=== PATIENT | female | born 1955 | race Caucasian/White ===

== ENCOUNTER → 2016-07-09 | Outpatient (CLI) | payer BC, OTHER ==
[~2016-07-09] MED LIST: AMB10 PO; BND25 PO; CYM/30 PO; DULO60CA44 PO; LINA1CAP2 PO; MORP15TA PO; PREG100C PO; estrogen patch
[2016-07-09 11:09] LABS: BASO % 0.4 %; BASO ABS # 0.02 K/uL (0-0.2); COMPLETE YES; EOS % 2.8 %; HEMATOCRIT 37.3 % (37-47); LYMPH % 21.5 %; LYMPH ABS # 1.07 K/uL (1.2-3.4); MEAN CELL VOLUME 104.8 fL (80-100); MEAN CORPUSCULAR HEMOGLOBIN 34.8 pg (25-34); MEAN CORPUSCULAR HGB CONC 33.2 g/dl (32-36); MEAN PLATELET VOLUME 10.9 fL (7.4-10.4); MONO % 9.4 %; NEUT % 65.9 %; PLATELET COUNT 232 K/uL (130-400); RED BLOOD COUNT 3.56 M/uL (4.2-5.4); WHITE BLOOD COUNT 4.98 K/uL (4.8-10.8)
[2016-07-09 12:10] LABS: ALT/SGPT 32 U/L (12-78); AST/SGOT 32 U/L (15-37); BLOOD UREA NITROGEN 15 mg/dl (7-18); BUN/CREATININE RATIO 22.2 (10-20); CALCIUM 9.1 mg/dl (8.5-10.1); CARBON DIOXIDE 26 mmol/L (21-32); CHLORIDE 106 mmol/L (98-107); CREATININE 0.68 mg/dl (0.60-1.20); GLUCOSE 76 mg/dl (70-99); POTASSIUM 4.5 mmol/L (3.5-5.1); SODIUM 140 mmol/L (136-145)
== END | disposition home or self-care (01) ==
LOC: C.LAB 10:21
DX: M19.90 Unspecified osteoarthritis, unspecified site (principal)

== ENCOUNTER → 2016-09-24 | Outpatient (CLI) | payer BC, OTHER ==
[~2016-09-24] MED LIST changes: -BND25 PO; +DIPH25CA5 PO
== END | disposition home or self-care (01) ==
LOC: C.MAMM 13:28
DX: M81.0 Age-related osteoporosis without current pathological fracture (principal); M85.89 Other specified disorders of bone density and structure, multiple sites

== ENCOUNTER → 2016-10-31 | Outpatient (CLI) | payer BC, OTHER ==
--- NOTE | 2016-10-31 14:49 | MAMMOGRAPHY REPORT ---
ULTRASOUND OF RIGHT BREAST: 10/31/2016 CLINICAL HISTORY: 6 Month Follow-up Right. COMPARISON: Comparison is made to exams dated: 05/02/2016 ultrasound, 05/02/2016 mammogram, 04/24/20 16 mammogram, 04/15/2015 mammogram, 04/14/2014 mammogram, and 04/13/2013 mammogram - [facility]. TECHNIQUE: Real-time targeted ultrasound of the right breast was performed. FINDINGS: Real-time, high resolution targeted ultrasound was performed of the region of the previous ly seen mammographic mass. In the right breast at 6:00 periareolar region, again noted is an isoecho ic oval parallel circumscribed mass which measures 2.2 x 1.0 x 2.0 cm. This previously measured 2.2 x 1.0 x 1.9 cm on the April 2016 exam and is unchanged in size and appearance. Some moderately di lated ducts are seen within the adjacent tissues, some of which do contain internal echogenic debris. Given the benign morphology and stability of the mass, the mass is probably benign, and could poten tially represent debris within a dilated duct, a complicated cyst, or a benign solid mass such as a f ibroadenoma. Recommend another short-term interval follow-up ultrasound in 6 months. IMPRESSION: ACR-BI-RADS CATEGORY 3: PROBABLY BENIGN - FOLLOW-UP RECOMMENDED Isoechoic circumscribed benign-appearing 2.2 cm mass in the right 6:00 breast is stable on ultrasound dating back to April 2016 and is probably benign. Recommend follow-up ultrasound in 6 months to confirm one-year stability; routine bilateral tomosynthesis mammograms will be due at that time. The patient was verbally notified of the results. Rylie Mena M.D. /:10/31/2016 12:09:12 Attending Technologist: Treasure COLLIER(Alden)(M), [facility] Power Transformer Inspector: Rylie Mena MD, [facility] letter sent: Follow Up Recommended 3 BI-RADS Code: ACR-BI-RADS Category 3: Probably Benign
== END | disposition home or self-care (01) ==
LOC: C.MAMM 11:23
DX: N63 Unspecified lump in breast (principal)

== ENCOUNTER → 2017-05-02 | Outpatient (CLI) | payer BC, OTHER ==
--- NOTE | 2017-05-02 14:35 | MAMMOGRAPHY REPORT ---
BILATERAL DIGITAL DIAGNOSTIC MAMMOGRAM TOMOSYNTHESIS WITH CAD AND TARGETED RIGHT ULTRASOUND: 05/02/20 17 CLINICAL HISTORY: Short interval follow-up of right breast mass. Due for routine annual mammography. The patient reports no current complaints. TECHNIQUE: Breast tomosynthesis in addition to standard 2D mammography was performed. Current study was also evaluated with a Computer Aided Detection (CAD) system. Bilateral CC and MLO 2-D and tomosy nthesis images were obtained. COMPARISON: Comparison is made to exams dated: 10/31/2016 ultrasound, 05/02/2016 ultrasound, 05/02/20 16 mammogram, 04/24/2016 mammogram, 04/15/2015 mammogram, and 04/14/2014 mammogram - [facility]. BREAST COMPOSITION: The tissue of both breasts is heterogeneously dense, which may obscure small mas ses. FINDINGS: There are no suspicious masses, calcifications, or areas of architectural distortion noted in either breast. There has been no significant interval change compared to prior exams. Partially circumscribed mass within the right subareolar breast does not appear significantly changed on MLO v iews to some of the prior exams including the 2010 exam. Targeted ultrasound was performed of the right 6:00 periareolar breast in the region of the mammograp hic mass. In the right 6:00 periareolar breast, again noted is an oval circumscribed isoechoic mass measuring 2.0 x 1.1 x 2.2 cm. The mass is stable in size and appearance dating back to the April 2016 exam on ultrasound, previously measuring 1.9 x 2.2 x 1.0 cm. Additionally, this corresponds wit h a mammographic mass which is stable compared to multiple prior exams. Given the morphology and nette g-term stability, the mass is considered benign. IMPRESSION: ACR BI-RADS CATEGORY 2: BENIGN, TARGETED ULTRASOUND ACR BI-RADS CATEGORY 2: BENIGN Isoechoic circumscribed 2.2 cm mass in the right 6:00 periareolar breast is stable and is considered benign given the morphology and long-term stability. There is no mammographic or targeted sonographi c evidence of malignancy. A 1 year screening mammogram is recommended. The patient has been verbally notified of the results. Approximately 10% of breast cancers are not detected with mammography. A negative mammographic report should not delay biopsy if a clinically suggestive mass is present. Rylie Mena M.D. ah/:05/02/2017 11:30:02 Vibratory Pile Driver: [facility] letter sent: Normal 1/2 BI-RADS Code: ACR BI-RADS Category 2: Benign Ultrasound BI-RADS: ACR BI-RADS Category 2: Benign
== END | disposition home or self-care (01) ==
LOC: C.MAMM 11:03
DX: R92.8 Other abnormal and inconclusive findings on diagnostic imaging of breast (principal); N63.10 Unspecified lump in the right breast, unspecified quadrant